=== PATIENT | male | born 1980 | race Caucasian/White ===

== ENCOUNTER 2020-04-10 11:20 | Emergency (ER) | payer MEDICAID ==
[~2020-04-10] VITALS: Ht 172.7 cm; Wt 54.5 kg
[2020-04-10 11:22] VITALS: BP 142/91
[2020-04-10] MEDS ORDERED: bacitracin 15gm ointment TP ONE (13:00)
[2020-04-10] MEDS ORDERED: AMOX-117 PO (13:07)
[2020-04-10] MEDS ORDERED: CEPH500C5 PO (13:08)
== END 2020-04-10 13:43 | disposition home or self-care (01) ==
LOC: ER 11:20
DX: T24.301A Burn of third degree of unspecified site of right lower limb, except ankle and foot, initial encounter (principal); T31.0 Burns involving less than 10% of body surface; L03.115 Cellulitis of right lower limb; M79.89 Other specified soft tissue disorders; Z72.89 Other problems related to lifestyle; X08.8XXA Exposure to other specified smoke, fire and flames, initial encounter; Y93.89 Activity, other specified; Y92.89 Other specified places as the place of occurrence of the external cause; Y99.8 Other external cause status
CPT/HCPCS: 99283